=== PATIENT | male | born 1975 | race Two or more races ===

== ENCOUNTER 2020-11-16 08:08 | Inpatient (IN) | payer SELFPAY ==
[~2020-11-16] VITALS: Ht 180.3 cm; Wt 119.0 kg
[2020-11-16] MEDS ORDERED: CHOLECALCIFEROL (VITD3) 2,000 UNIT CAP/TAB PO ONE (08:45)
[2020-11-16] MEDS ORDERED: methylPREDNISolone SOD SUCC 125 MG/2 ML VL IV ONE (08:45)
[2020-11-16] MEDS ORDERED: AZITHROMYCIN 500MG/ 250ML 250 ML IV ONE (08:45)
[2020-11-16] MEDS ORDERED: ZINC SULFATE 220mg CAP or TAB PO ONE (08:45)
[2020-11-16] MEDS ORDERED: ASCORBIC ACID 500 MG TAB PO ONE (08:45)
[2020-11-16 09:10] LABS: Basophils # (auto) 0 10 ^3/uL (0-0.2); Basophils % (auto) 0.4 % (0.0-2.0); Eosinophils # (auto) 0 10 ^3/uL (0-0.8); Hematocrit 47.9 % (41.0-53.0); Hemoglobin 16.2 g/dL (13.5-17.5); Lymphocytes # (auto) 0.5 10 ^3/uL (0.4-5.4); Lymphocytes % (auto) 10.5 % (10.0-50.0); Mean Corpuscular Hemoglobin 30.5 pg (28.0-32.0); Mean Corpuscular Hgb Conc. 33.9 g/dL (32.0-36.0); Mean Corpuscular Volume 89.9 fL (80.0-100.0); Monocytes # (auto) 0.4 10 ^3/uL (0-1.3); Monocytes % (auto) 7.6 % (0.0-12.0); Neutrophils % (auto) 81.5 % (37.0-80.0); Nucleated Red Blood Cells % 0.1 %; Red Blood Cells 5.33 10^6/uL (4.5-5.90); Red Cell Distribution Width 13.5 % (11.8-14.3); White Blood Cell 4.9 10^3/uL (4.4-10.8)
[2020-11-16 09:30] LABS: Albumin 3.2 g/dL (3.4-5.0); Anion Gap 8 (5-15); Blood Urea Nitrogen 14 mg/dL (7-18); Calcium 8.2 mg/dL (8.5-10.1); Carbon Dioxide 29 mmol/L (21-32); Chloride 97 mmol/L (98-107); Glucose 110 mg/dL (74-106); Potassium 4.2 mmol/L (3.5-5.1); Sodium 134 mmol/L (136-145)
[2020-11-16 09:38] LABS: Alanine Aminotransferase 38 U/L (16-61); Alkaline Phosphatase 38 U/L (45-117); Aspartate Aminotransferase 56 U/L (15-37); BUN/Creatinine Ratio 12.4; Bilirubin, Total 0.6 mg/dL (0.2-1.0); CRP High Sensitivity 9.76 mg/dL (< 0.3); GFR African American 89 mL/min; GFR Non-African American 74 mL/min
[2020-11-16] MEDS ORDERED: REMDESIVIR PER PHARMACY 0 ML IV SCH (12:45)
[2020-11-16] MEDS ORDERED: ONDANSETRON HCL 4 MG/2 ML VIAL IV PRN (12:45)
[2020-11-16] MEDS ORDERED: MORPHINE SULF INJ 2 MG/ML SYRINGE 1ML IV PRN ×2 (12:45)
[2020-11-16] MEDS ORDERED: IVERMECTIN 3 MG TAB PO ONE (12:45)
[2020-11-16] MEDS ORDERED: NITROGLYCERIN 0.4 MG SL TAB SL PRN (12:45)
[2020-11-16] MEDS ORDERED: HYDROcodone-ACET 5/325MG TAB PO PRN (12:45)
[2020-11-16] MEDS ORDERED: ACETAMINOPHEN 500 MG TAB PO PRN (12:45)
[2020-11-16 13:05] VITALS: BP 117/65
[2020-11-16] MEDS: cefTRIAXone 1GM/50ML D5W 50 ML IV SCH (14:39)
[2020-11-16] MEDS: ENOXAPARIN SOD 40 MG/0.4 ML SYRINGE SC SCH ×2 (14:40→22:33)
[2020-11-16] MEDS ORDERED: REMDESIVIR 200 MG in NS 210ml LOADING DOSE ADULT IV ONE (15:00)
[2020-11-16] MEDS ORDERED: TOCILIZUMAB 400 MG in SODIUM CHL 0.9% 80 ML IV ONE (17:00)
[2020-11-16 22:14] VITALS: BP 122/74
[2020-11-16] MEDS: BUDESONIDE (INHALATION) 180 MCG IH IN SCH (22:22)
[2020-11-16] MEDS: ALBUTEROL SULF HFA 90MCG INH 200DOSE IN PRN (22:22)
[2020-11-16 22:29] VITALS: BP 153/88
[2020-11-16 23:38] VITALS: BP 132/79
[2020-11-17 05:43] LABS: Basophils # (auto) 0 10 ^3/uL (0-0.2); Basophils % (auto) 0.5 % (0.0-2.0); Eosinophils # (auto) 0 10 ^3/uL (0-0.8); Eosinophils % (auto) 0.1 % (0.0-7.0); Hematocrit 45.2 % (41.0-53.0); Hemoglobin 15.9 g/dL (13.5-17.5); Lymphocytes # (auto) 0.5 10 ^3/uL (0.4-5.4); Lymphocytes % (auto) 17.2 % (10.0-50.0); Mean Corpuscular Hemoglobin 31.2 pg (28.0-32.0); Mean Corpuscular Hgb Conc. 35.3 g/dL (32.0-36.0); Mean Corpuscular Volume 88.4 fL (80.0-100.0); Monocytes # (auto) 0.4 10 ^3/uL (0-1.3); Monocytes % (auto) 15.2 % (0.0-12.0); Nucleated Red Blood Cells % 0.3 %; Red Blood Cells 5.11 10^6/uL (4.5-5.90); White Blood Cell 2.9 10^3/uL (4.4-10.8)
[2020-11-17 06:18] LABS: Calcium 8.4 mg/dL (8.5-10.1); Potassium 4.6 mmol/L (3.5-5.1)
[2020-11-17 06:24] LABS: BUN/Creatinine Ratio 19.8; Bilirubin, Total 0.5 mg/dL (0.2-1.0); Total Protein 7.7 g/dL (6.4-8.2)
[2020-11-17] MEDS ORDERED: TOCILIZUMAB 400 MG in SODIUM CHL 0.9% 80 ML IV ONE ×2 (08:00→08:30)
[2020-11-17] MEDS: ALBUTEROL SULF HFA 90MCG INH 200DOSE IN PRN (10:00)
[2020-11-17] MEDS: BUDESONIDE (INHALATION) 180 MCG IH IN SCH ×2 (10:00→21:35)
[2020-11-17] MEDS: FLORASTOR (S. BOULARDII) 250 MG CAP PO SCH (10:49)
[2020-11-17] MEDS: CHOLECALCIFEROL (VITD3) 2,000 UNIT CAP/TAB PO SCH (10:49)
[2020-11-17] MEDS: ASCORBIC ACID 1,000 MG TAB PO SCH (10:49)
[2020-11-17] MEDS: DexAMETHasone SOD PHOS 10MG/1ML VIAL INJ IV SCH (10:50)
[2020-11-17] MEDS: ENOXAPARIN SOD 40 MG/0.4 ML SYRINGE SC SCH ×2 (10:51→21:36)
[2020-11-17] MEDS: cefTRIAXone 1GM/50ML D5W 50 ML IV SCH (11:08)
[2020-11-17] MEDS: ZINC SULFATE 220mg CAP or TAB PO SCH (11:08)
[2020-11-17] MEDS: AZITHROMYCIN 500MG/ 250ML 250 ML IV SCH (11:10)
[2020-11-17] MEDS ORDERED: FUROSEMIDE 20 MG/2 ML VIAL IV ONE (14:00)
[2020-11-17] MEDS: REMDESIVIR 100mg 100 MG in SODIUM CHL 0.9% 230 ML IV SCH (15:25)
[2020-11-17 22:00] VITALS: BP 128/83
[2020-11-18 05:00] VITALS: BP 135/81
[2020-11-18 07:02] LABS: Calcium 8.5 mg/dL (8.5-10.1); Potassium 4.4 mmol/L (3.5-5.1)
[2020-11-18 07:06] LABS: BUN/Creatinine Ratio 21.1; Bilirubin, Total 0.6 mg/dL (0.2-1.0); Total Protein 7.4 g/dL (6.4-8.2)
[2020-11-18] MEDS: cefTRIAXone 1GM/50ML D5W 50 ML IV SCH (08:54)
[2020-11-18] MEDS: ENOXAPARIN SOD 40 MG/0.4 ML SYRINGE SC SCH ×2 (08:54→22:37)
[2020-11-18] MEDS: CHOLECALCIFEROL (VITD3) 2,000 UNIT CAP/TAB PO SCH (08:55)
[2020-11-18] MEDS: ZINC SULFATE 220mg CAP or TAB PO SCH (08:55)
[2020-11-18] MEDS: DexAMETHasone SOD PHOS 10MG/1ML VIAL INJ IV SCH (08:55)
[2020-11-18] MEDS: ASCORBIC ACID 1,000 MG TAB PO SCH (08:55)
[2020-11-18] MEDS: FLORASTOR (S. BOULARDII) 250 MG CAP PO SCH (08:55)
[2020-11-18] MEDS: AZITHROMYCIN 500MG/ 250ML 250 ML IV SCH (08:55)
[2020-11-18 09:00] VITALS: BP 133/74
[2020-11-18] MEDS: ALBUTEROL SULF HFA 90MCG INH 200DOSE IN PRN (09:48)
[2020-11-18] MEDS: BUDESONIDE (INHALATION) 180 MCG IH IN SCH ×2 (09:49→22:00)
[2020-11-18] MEDS: FUROSEMIDE 20 MG/2 ML VIAL IV SCH (10:00)
[2020-11-18 13:00] VITALS: BP 123/83
[2020-11-18] MEDS: REMDESIVIR 100mg 100 MG in SODIUM CHL 0.9% 230 ML IV SCH (15:04)
[2020-11-18 17:00] VITALS: BP 134/87
[2020-11-19 05:00] VITALS: BP 133/68
[2020-11-19 05:55] LABS: Calcium 8.1 mg/dL (8.5-10.1); Potassium 4.2 mmol/L (3.5-5.1)
[2020-11-19 06:01] LABS: Albumin 3.1 g/dL (3.4-5.0); BUN/Creatinine Ratio 23.4; Bilirubin, Total 0.5 mg/dL (0.2-1.0); Total Protein 7.2 g/dL (6.4-8.2)
[2020-11-19] MEDS: ALBUTEROL SULF HFA 90MCG INH 200DOSE IN PRN ×2 (06:37→22:56)
[2020-11-19] MEDS: BUDESONIDE (INHALATION) 180 MCG IH IN SCH ×2 (06:37→22:00)
[2020-11-19 08:30] VITALS: BP 119/68
[2020-11-19] MEDS: ENOXAPARIN SOD 40 MG/0.4 ML SYRINGE SC SCH ×2 (08:53→21:32)
[2020-11-19] MEDS: FAMOTIDINE 20 MG TAB PO SCH (08:53)
[2020-11-19] MEDS: DexAMETHasone SOD PHOS 10MG/1ML VIAL INJ IV SCH (08:53)
[2020-11-19] MEDS: FUROSEMIDE 20 MG/2 ML VIAL IV SCH (08:53)
[2020-11-19] MEDS: ZINC SULFATE 220mg CAP or TAB PO SCH (08:53)
[2020-11-19] MEDS: cefTRIAXone 1GM/50ML D5W 50 ML IV SCH (08:54)
[2020-11-19] MEDS: FLORASTOR (S. BOULARDII) 250 MG CAP PO SCH (08:54)
[2020-11-19] MEDS: ASCORBIC ACID 1,000 MG TAB PO SCH (08:54)
[2020-11-19] MEDS: CHOLECALCIFEROL (VITD3) 2,000 UNIT CAP/TAB PO SCH (08:54)
[2020-11-19] MEDS: AZITHROMYCIN 500MG/ 250ML 250 ML IV SCH (08:54)
[2020-11-19 12:30] VITALS: BP 119/68
[2020-11-19 14:22] VITALS: BP 132/86
[2020-11-19] MEDS: REMDESIVIR 100mg 100 MG in SODIUM CHL 0.9% 230 ML IV SCH (14:30)
[2020-11-19 17:00] VITALS: BP 135/85
[2020-11-19 22:00] VITALS: BP 136/80
[2020-11-20 05:00] VITALS: BP 128/80
[2020-11-20] MEDS: ALBUTEROL SULF HFA 90MCG INH 200DOSE IN PRN ×2 (07:07→22:31)
[2020-11-20] MEDS: BUDESONIDE (INHALATION) 180 MCG IH IN SCH ×2 (07:07→22:00)
[2020-11-20 07:09] LABS: Potassium 4.2 mmol/L (3.5-5.1)
[2020-11-20 07:22] LABS: BUN/Creatinine Ratio 21.4; Bilirubin, Total 0.6 mg/dL (0.2-1.0); Calcium 7.9 mg/dL (8.5-10.1); Total Protein 6.7 g/dL (6.4-8.2)
[2020-11-20 08:30] VITALS: BP 130/79
[2020-11-20] MEDS: cefTRIAXone 1GM/50ML D5W 50 ML IV SCH (09:36)
[2020-11-20] MEDS: AZITHROMYCIN 500MG/ 250ML 250 ML IV SCH (09:36)
[2020-11-20] MEDS: ZINC SULFATE 220mg CAP or TAB PO SCH (09:36)
[2020-11-20] MEDS: FLORASTOR (S. BOULARDII) 250 MG CAP PO SCH (09:37)
[2020-11-20] MEDS: ENOXAPARIN SOD 40 MG/0.4 ML SYRINGE SC SCH ×2 (09:37→21:06)
[2020-11-20] MEDS: CHOLECALCIFEROL (VITD3) 2,000 UNIT CAP/TAB PO SCH (09:37)
[2020-11-20] MEDS: FAMOTIDINE 20 MG TAB PO SCH (09:37)
[2020-11-20] MEDS: ASCORBIC ACID 1,000 MG TAB PO SCH (09:37)
[2020-11-20] MEDS: FUROSEMIDE 20 MG/2 ML VIAL IV SCH (09:41)
[2020-11-20] MEDS: BUDESONIDE (INHALATION) 0.5 MG/2 ML NEB NEB SCH ×2 (10:00→22:00)
[2020-11-20 12:30] VITALS: BP 114/74
[2020-11-20] MEDS: DexAMETHasone SOD PHOS 10MG/1ML VIAL INJ IV SCH (14:18)
[2020-11-20] MEDS: REMDESIVIR 100mg 100 MG in SODIUM CHL 0.9% 230 ML IV SCH (15:40)
[2020-11-20 17:00] VITALS: BP 120/78
[2020-11-20 22:00] VITALS: BP 119/73
[2020-11-21 05:00] VITALS: BP_SYST 119; BP_SYST 121; BP_DIAS 69; BP_DIAS 73
[2020-11-21 06:58] LABS: Potassium 4.4 mmol/L (3.5-5.1)
[2020-11-21 07:04] LABS: Bilirubin, Total 0.7 mg/dL (0.2-1.0); CRP High Sensitivity 0.52 mg/dL (< 0.3); Total Protein 6.8 g/dL (6.4-8.2)
[2020-11-21] MEDS: BUDESONIDE (INHALATION) 0.5 MG/2 ML NEB NEB SCH ×2 (07:33→19:30)
[2020-11-21] MEDS: ALBUTEROL SULF HFA 90MCG INH 200DOSE IN PRN ×2 (07:33→19:31)
[2020-11-21 09:00] VITALS: BP 134/69
[2020-11-21] MEDS: cefTRIAXone 1GM/50ML D5W 50 ML IV SCH (09:14)
[2020-11-21] MEDS: FLORASTOR (S. BOULARDII) 250 MG CAP PO SCH (09:35)
[2020-11-21] MEDS: AZITHROMYCIN 500MG/ 250ML 250 ML IV SCH (09:35)
[2020-11-21] MEDS: ZINC SULFATE 220mg CAP or TAB PO SCH (09:35)
[2020-11-21] MEDS: DexAMETHasone SOD PHOS 10MG/1ML VIAL INJ IV SCH (09:35)
[2020-11-21] MEDS: FAMOTIDINE 20 MG TAB PO SCH (09:35)
[2020-11-21] MEDS: CHOLECALCIFEROL (VITD3) 2,000 UNIT CAP/TAB PO SCH (09:36)
[2020-11-21] MEDS: ENOXAPARIN SOD 40 MG/0.4 ML SYRINGE SC SCH ×2 (09:36→21:58)
[2020-11-21] MEDS: ASCORBIC ACID 1,000 MG TAB PO SCH (09:36)
[2020-11-21] MEDS: BUDESONIDE (INHALATION) 180 MCG IH IN SCH ×2 (10:00→19:30)
[2020-11-21 13:00] VITALS: BP 118/68
[2020-11-21 17:00] VITALS: BP 134/74
[2020-11-21 22:00] VITALS: BP 132/77
[2020-11-22 05:00] VITALS: BP 113/60
[2020-11-22] MEDS: BUDESONIDE (INHALATION) 180 MCG IH IN SCH ×2 (06:19→22:00)
[2020-11-22] MEDS: ALBUTEROL SULF HFA 90MCG INH 200DOSE IN PRN (06:19)
[2020-11-22 09:00] VITALS: BP 125/82
[2020-11-22] MEDS: cefTRIAXone 1GM/50ML D5W 50 ML IV SCH (09:07)
[2020-11-22] MEDS: FAMOTIDINE 20 MG TAB PO SCH (09:43)
[2020-11-22] MEDS: ASCORBIC ACID 1,000 MG TAB PO SCH (09:43)
[2020-11-22] MEDS: CHOLECALCIFEROL (VITD3) 2,000 UNIT CAP/TAB PO SCH (09:43)
[2020-11-22] MEDS: FLORASTOR (S. BOULARDII) 250 MG CAP PO SCH (09:43)
[2020-11-22] MEDS: DexAMETHasone SOD PHOS 10MG/1ML VIAL INJ IV SCH (09:43)
[2020-11-22] MEDS: ZINC SULFATE 220mg CAP or TAB PO SCH (09:43)
[2020-11-22] MEDS: ENOXAPARIN SOD 40 MG/0.4 ML SYRINGE SC SCH ×2 (09:44→21:17)
[2020-11-22 13:00] VITALS: BP 140/87
[2020-11-23] MEDS: ALBUTEROL SULF HFA 90MCG INH 200DOSE IN PRN (05:53)
[2020-11-23] MEDS: BUDESONIDE (INHALATION) 180 MCG IH IN SCH (05:53)
[2020-11-23] MEDS: ZINC SULFATE 220mg CAP or TAB PO SCH (09:39)
[2020-11-23] MEDS: cefTRIAXone 1GM/50ML D5W 50 ML IV SCH (09:39)
[2020-11-23] MEDS: CHOLECALCIFEROL (VITD3) 2,000 UNIT CAP/TAB PO SCH (09:39)
[2020-11-23] MEDS: ENOXAPARIN SOD 40 MG/0.4 ML SYRINGE SC SCH ×2 (09:39→21:30)
[2020-11-23] MEDS: ASCORBIC ACID 1,000 MG TAB PO SCH (09:39)
[2020-11-23] MEDS: DexAMETHasone SOD PHOS 10MG/1ML VIAL INJ IV SCH (09:39)
[2020-11-23] MEDS: FLORASTOR (S. BOULARDII) 250 MG CAP PO SCH (09:40)
[2020-11-23] MEDS: FAMOTIDINE 20 MG TAB PO SCH (09:40)
[2020-11-23 22:00] VITALS: BP 125/80
[2020-11-24] MEDS: BUDESONIDE (INHALATION) 180 MCG IH IN SCH ×2 (00:42→07:45)
[2020-11-24] MEDS: ALBUTEROL SULF HFA 90MCG INH 200DOSE IN PRN ×2 (00:43→07:45)
[2020-11-24 05:00] VITALS: BP 126/84
[2020-11-24] MEDS: DexAMETHasone SOD PHOS 10MG/1ML VIAL INJ IV SCH (09:16)
[2020-11-24] MEDS: cefTRIAXone 1GM/50ML D5W 50 ML IV SCH (09:16)
[2020-11-24] MEDS: CHOLECALCIFEROL (VITD3) 2,000 UNIT CAP/TAB PO SCH (09:16)
[2020-11-24] MEDS: ZINC SULFATE 220mg CAP or TAB PO SCH (09:16)
[2020-11-24] MEDS: ASCORBIC ACID 1,000 MG TAB PO SCH (09:17)
[2020-11-24] MEDS: FAMOTIDINE 20 MG TAB PO SCH (09:17)
[2020-11-24] MEDS: FLORASTOR (S. BOULARDII) 250 MG CAP PO SCH (09:47)
[2020-11-24] MEDS: ENOXAPARIN SOD 40 MG/0.4 ML SYRINGE SC SCH (09:47)
== END 2020-11-24 17:30 | disposition home or self-care (01) | DRG 177 ==
LOC: ER 08:08 → TELE 12:36 → TELE-EAST 11-17 17:56 → TELE-CENTR 11-24 17:30
PROVIDERS: ADMIT Nurse Practitioner Acute Care; ATTEND Internal Medicine
PROC: XW13325 Transfusion of Convalescent Plasma (Nonautologous) into Peripheral Vein, Percutaneous Approach, New Technology Group 5 (ICD-10-PCS; principal; 2020-11-16)
PROC: XW033E5 Introduction of Remdesivir Anti-infective into Peripheral Vein, Percutaneous Approach, New Technology Group 5 (ICD-10-PCS; 2020-11-16)
PROC: XW033H5 Introduction of Tocilizumab into Peripheral Vein, Percutaneous Approach, New Technology Group 5 (ICD-10-PCS; 2020-11-16)
DX: U07.1 COVID-19 (principal); J96.01 Acute respiratory failure with hypoxia; J12.82 Pneumonia due to coronavirus disease 2019; D68.59 Other primary thrombophilia; E66.9 Obesity, unspecified; D89.839 Cytokine release syndrome, grade unspecified; Z79.899 Other long term (current) drug therapy; Z68.36 Body mass index [BMI] 36.0-36.9, adult
CPT/HCPCS: 36415; 36600; 71045; 80053; 82306; 82728; 82805; 83036; 83605; 83615; 83880; 84443; 84484; 85025; 85379; 86141; 86850; 86900; 86901; 87040; 87070; 87077; 87186; 87205; 87426; 93005; 94640; 96365; 96375; 99291; G0378; J0696; J1100

== ENCOUNTER 2023-11-23 15:33 | Emergency (ER) | payer SELFPAY ==
[~2023-11-23] VITALS: Ht 180.3 cm; Wt 134.0 kg
[2023-11-23 18:02] VITALS: BP 125/82; TEMP 98.5
[2023-11-23 18:03] VITALS: PULSE 88; RESP 18; O2SAT 95
[2023-11-23] MEDS: KETOROLAC TROMETH 60MG/2ML VIAL IM ONE (20:37)
[2023-11-23] MEDS ORDERED: IBU600T PO (21:09)
[2023-11-23] MEDS ORDERED: METH-1182 PO (21:09)
== END 2023-11-23 21:12 | disposition home or self-care (01) ==
LOC: ER 15:33
DX: S32.000A Wedge compression fracture of unspecified lumbar vertebra, initial encounter for closed fracture (principal); S13.4XXA Sprain of ligaments of cervical spine, initial encounter; S39.012A Strain of muscle, fascia and tendon of lower back, initial encounter; S60.212A Contusion of left wrist, initial encounter; S63.502A Unspecified sprain of left wrist, initial encounter; S19.9XXA Unspecified injury of neck, initial encounter; S09.90XA Unspecified injury of head, initial encounter; V49.49XA Driver injured in collision with other motor vehicles in traffic accident, initial encounter; Y93.89 Activity, other specified; Y92.89 Other specified places as the place of occurrence of the external cause; Y99.8 Other external cause status
CPT/HCPCS: 70450; 72040; 72100; 73110; 73130; 96372; 99285; J1885